=== PATIENT | female | born 1980 | race Caucasian/White ===

== ENCOUNTER 2025-03-09 20:36 | Outpatient (CLI) | payer BC, SELFPAY | END 2025-03-09 20:37 | disposition home or self-care (01) | LOC: AMB 04-07 09:23 | PROVIDERS: Visit Provider Family Medicine | DX: T14.90XA Injury, unspecified, initial encounter (principal); Y04.0XXA Assault by unarmed brawl or fight, initial encounter; Y92.009 Unspecified place in unspecified non-institutional (private) residence as the place of occurrence of the external cause | CPT/HCPCS: A0998 ==